=== PATIENT | female | born 1970 | race African-American/Black ===

== ENCOUNTER 2020-12-24 08:34 | Outpatient (CLI) | payer OTHER, SELFPAY ==
--- NOTE | 2020-12-24 10:30 | NEURO_ITS ---
Impression: # Insulin dependent diabetic complains numbness and pain in all extremities. 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 # Neurogenic changes noted on needle/EMG exam. # Clinical correlation recommended. Nerve Conduction Studies Anti Sensory Summary Table Stim Site NR Peak (ms) P-T Amp (?V) Site1 Site2 Delta-P (ms) Dist (cm) Nelson (m/s) Left Median Anti Sensory (2-3nd Digit) Wrist 3.2 41.5 Wrist 2-3nd Digit 3.2 14.0 44 Wrist 3.3 34.7 Wrist 2-3nd Digit 3.2 14.0 44 Right Median Anti Sensory (2-3nd Digit) Wrist 3.1 44.4 Wrist 2-3nd Digit 3.1 14.0 45 Wrist 3.3 24.4 Wrist 2-3nd Digit 3.1 14.0 45 Left Radial Anti Sensory (Base 1st Digit) Wrist 2.1 25.0 Wrist Base 1st Digit 2.1 0.0 Right Radial Anti Sensory (Base 1st Digit) Wrist 2.5 20.9 Wrist Base 1st Digit 2.5 0.0 Left Sup Fibular Anti Sensory (Ant Lat Mall) NO RESPONSE 14 cm NR 14 cm Ant Lat Mall 16.0 Right Sup Fibular Anti Sensory (Ant Lat Mall) DISPERSED RESPONSE 14 cm NR 14 cm Ant Lat Mall 16.0 Left Sural Anti Sensory (Lat Mall) Calf 3.5 3.2 Calf Lat Mall 3.5 16.0 46 Right Sural Anti Sensory (Lat Mall) Calf 4.5 5.3 Calf Lat Mall 4.5 16.0 36 Left Ulnar Anti Sensory (5th Digit) Wrist 2.7 50.2 Wrist 5th Digit 2.7 14.0 52 Right Ulnar Anti Sensory (5th Digit) Wrist 2.3 46.8 Wrist 5th Digit 2.3 14.0 61 Motor Summary Table Stim Site NR Onset (ms) O-P Amp (mV) Site1 Site2 Delta-0 (ms) Dist (cm) Nelson (m/s) Left Median Motor (Abd Poll Brev) Wrist 3.4 6.0 Elbow Wrist 4.8 27.0 56 Elbow 8.2 5.3 Right Median Motor (Abd Poll Brev) Wrist 3.7 3.7 Elbow Wrist 4.9 27.0 55 Elbow 8.6 0.9 Left Peroneal Motor (Vastus Med) Ankle 4.6 4.5 Popit Ankle 9.9 41.0 41 Popit 14.5 2.7 Right Peroneal Motor (Vastus Med) Ankle 4.1 4.7 Popit Ankle 9.7 34.0 35 Popit 13.8 1.3 Left Tibial Motor (Abd Day Brev) Ankle 4.9 3.7 Knee Ankle 9.9 43.0 43 Knee 14.8 2.0 Right Tibial Motor (Abd Day Brev) Ankle 4.7 2.1 Knee Ankle 11.0 42.0 38 Knee 15.7 2.3 Left Ulnar Motor (Abd Dig Minimi) Wrist 2.5 5.1 A Elbow Wrist 5.2 28.0 54 A Elbow 7.7 4.2 Right Ulnar Motor (Abd Dig Minimi) Wrist 2.9 2.6 A Elbow Wrist 5.5 30.0 55 A Elbow 8.4 1.6 F Wave Studies NR F-Lat (ms) L-R F-Lat (ms) Left Median (Mrkrs) (Abd Poll Brev) 31.71 0.64 Right Median (Mrkrs) (Abd Poll Brev) 31.06 0.64 Left Peroneal (Mrkrs) (EDB) 55.00 0.19 Right Peroneal (Mrkrs) (EDB) 54.81 0.19 Left Tibial (Mrkrs) (Abd Hallucis) 54.60 Right Tibial (Mrkrs) (Abd Hallucis) DISPERSED RESPONSE NR Left Ulnar (Mrkrs) (Abd Dig Min) 30.00 1.88 Right Ulnar (Mrkrs) (Abd Dig Min) 31.88 1.88 EMG Side Muscle Nerve Root Ins Act Fibs Amp Dur Recrt Comment Right 1stDorInt Ulnar C8-T1 Nml Nml Nml Nml Nml Right Ext Indicis Radial (Post Int) C7-8 Nml Nml Nml Nml Nml Right Ext Digitorum Radial (Post Int) C7-8 Nml Nml Nml Nml Nml Right BrachioRad Radial C5-6 Nml Nml Nml Nml Nml Right PronatorTeres Median C6-7 Nml Nml Nml Nml Nml Right Abd Poll Brev Median C8-T1 Nml Nml Nml Nml Nml
== END 2020-12-24 08:35 | disposition home or self-care (01) ==
PROVIDERS: PCP Physician Assistant; Visit Provider Physician Assistant
DX: M54.12 Radiculopathy, cervical region (principal); E11.40 Type 2 diabetes mellitus with diabetic neuropathy, unspecified
CPT/HCPCS: 95886; 95911

== ENCOUNTER 2021-04-22 00:31 | Day surgery (SDC) | payer OTHER, SELFPAY ==
[2021-04-14 15:41] VITALS: BMI 32.7
[2021-04-22 09:57] VITALS: BP 101/70; PULSE 102; RESP 18; TEMP 36.1; O2SAT 100; BMI 31.0
[2021-04-22 10:17] LABS: Glucose Point of Care 139 mg/dl (65-105)
--- NOTE | 2021-04-22 10:18 | WPDANESEPPF ---
Anes - Initial Pre Proc Eval Procedure: Operation Date: 04/22/21 11:00 Proposed Procedures p Esophagogastroduodenoscopy & Screening Colonoscopy - Titus Silver MD Date/Time: 04/22/21 10:18 Surgeon: Titus Silver MD Pre Op Diagnosis: dysphagia, Neoplasm screening Patient Data Age: 50 Gender: F Height: 1.68 m Weight: 87.3 kg Last Vital Signs Temp 36.1 C L 04/22/21 09:57 Pulse 102 H 04/22/21 09:57 Resp 18 04/22/21 09:57 BP 101/70 04/22/21 09:57 Pulse Ox 100 04/22/21 09:57 Allergies Allergy/AdvReac Type Severity Reaction Status Date / Time Penicillins Allergy Anaphylaxis Verified 04/22/21 09:56 Home Medications Medication Instructions Recorded Confirmed Type albuterol sulfate 2 puff INHALATION DAILY PRN 04/14/21 04/14/21 History amitriptyline 50 mg PO HS 04/14/21 04/14/21 History aspirin 81 mg PO DAILY 04/14/21 04/14/21 History atorvastatin 40 mg PO HS 04/14/21 04/14/21 History cyclobenzaprine 5 mg PO DAILY 04/14/21 04/14/21 History gabapentin 600 mg PO TID 04/14/21 04/14/21 History insulin glargine [Basaglar KwikPen 60 unit SUBCUT HS 04/14/21 04/14/21 History U-100 Insulin] meloxicam 7.5 mg PO BID 04/14/21 04/14/21 History metformin 500 mg PO BID 04/14/21 04/14/21 History propranolol 40 mg PO DAILY 04/14/21 04/14/21 History sertraline 50 mg PO DAILY 04/14/21 04/14/21 History sertraline 100 mg PO DAILY 04/14/21 04/14/21 History Laboratory Tests 04/22/21 10:09 POC Capillary Glucose 139 mg/dl H mg/dl (65-105) Patient hx anesthesia problems: none Family hx anesthesia problems: none PMFSH Past Medical History Medical History (Updated 04/22/21 @ 10:18 by Karlo Lovell MD) Diabetes Hyperlipidemia Obesity PREETI on CPAP Social History Social History Smoking status: Never smoker Living arrangements: with family Spiritual care concerns: No Anes - Eval Final PreProcedure Day of Procedure 04/22/21 10:18 Patient weight: obese Heart: regular rate and rhythm Lungs: clear to auscultation Airway: Mallampati scale class II Neurological: alert and oriented Last oral intake: >/= 8 hours ASA classification: III Emergent: no Anesthetic plan: proceed Anesthesia type and monitoring: general GIVS and standard monitoring Informed Consent: The patient's anesthetic plan and its attendant risks and benefits were discussed with the patient/family/POA. Questions were solicited and answers provided to the satisfaction of the patient/family/POA.
[2021-04-22] MEDS: LACTATED RINGERS 1,000 ML 150 ML IV CONT (10:21)
--- NOTE | 2021-04-22 10:26 | P.HP_ITS ---
History of Present Illness History of Present Illness Consent: Risks, benefits, and alternatives have been discussed and questions answered. Patient agrees to proceed with procedure. Chief complaint: dysphagia, Neoplasm screening Narrative: Joy Christensen is a 50 year old female With had dysphagia primarily for solid food beginning 2 months ago. Occasionally even liquids and semi- liquid material such as water or applesauce will seem to get hung up. She denies heartburn. She denies weight loss. She is also undergoing colon cancer screening Review of Systems Review of Systems: All systems reviewed & are unremarkable except as noted in HPI and below PMFSH Past Medical History Medical History Diabetes Hyperlipidemia Obesity PREETI on CPAP Social History Social History Smoking status: Never smoker Living arrangements: with family Spiritual care concerns: No Meds Home Medications and Allergies Home Medications Medication Instructions Recorded Confirmed Type albuterol sulfate 2 puff INHALATION DAILY PRN 04/14/21 04/14/21 History amitriptyline 50 mg PO HS 04/14/21 04/14/21 History aspirin 81 mg PO DAILY 04/14/21 04/14/21 History atorvastatin 40 mg PO HS 04/14/21 04/14/21 History cyclobenzaprine 5 mg PO DAILY 04/14/21 04/14/21 History gabapentin 600 mg PO TID 04/14/21 04/14/21 History insulin glargine [Basaglar KwikPen 60 unit SUBCUT HS 04/14/21 04/14/21 History U-100 Insulin] meloxicam 7.5 mg PO BID 04/14/21 04/14/21 History metformin 500 mg PO BID 04/14/21 04/14/21 History propranolol 40 mg PO DAILY 04/14/21 04/14/21 History sertraline 50 mg PO DAILY 04/14/21 04/14/21 History sertraline 100 mg PO DAILY 04/14/21 04/14/21 History propranolol 60 mg PO DAILY 04/22/21 04/22/21 History Allergies Allergy/AdvReac Type Severity Reaction Status Date / Time Penicillins Allergy Anaphylaxis Verified 04/22/21 09:56 Vital Signs Vital Signs - 24 hr 04/22/21 09:57 Temperature 36.1 C L Pulse Rate 102 H Respiratory Rate 18 Blood Pressure 101/70 Pulse Oximetry 100 Exam Const: General: alert Orientation/consciousness: patient oriented x3 Resp: Auscultation: clear to auscultation bilaterally Cardio: Rhythm: regular rhythm GI: GI Palp: Yes Soft to palpation and No Tenderness to palpation present (GI) Neuro: General: patient oriented x3 Assessment and Plan Assessment and plan (1) Dysphagia: Code(s): R13.10 - Dysphagia, unspecified Status: Acute Assessment and Plan: EGD with possible biopsy or dilatation or cautery. (2) Colon cancer screening: Code(s): Z12.11 - Encounter for screening for malignant neoplasm of colon Status: Acute Assessment and Plan: Colonoscopy with possible biopsy or polypectomy or cautery or injection of substances.
[2021-04-22 11:53] VITALS: BP 90/50; PULSE 80; RESP 18; O2SAT 100
[2021-04-22 12:03] VITALS: BP 96/60; PULSE 82; RESP 17; O2SAT 100
[2021-04-22 12:13] VITALS: BP 104/67; PULSE 81; RESP 16; O2SAT 100
[2021-04-22 12:13] LABS: Glucose Point of Care 116 mg/dl (65-105)
--- NOTE | 2021-04-22 12:45 | SUR.PHASEII ---
Dr. Silver notified of the Positive H-pylori.
== END 2021-04-22 12:41 | disposition home or self-care (01) ==
PROVIDERS: PCP Physician Assistant; Visit Provider Internal Medicine Gastroenterology
PROC: 0DJ08ZZ Inspection of Upper Intestinal Tract, Via Natural or Artificial Opening Endoscopic (ICD-10-PCS; CPT 43235; principal; 2021-04-22 11:00)
DX: Z12.11 Encounter for screening for malignant neoplasm of colon (principal); K21.00 Gastro-esophageal reflux disease with esophagitis, without bleeding; B96.81 Helicobacter pylori [H. pylori] as the cause of diseases classified elsewhere; R13.10 Dysphagia, unspecified; E11.9 Type 2 diabetes mellitus without complications; E78.5 Hyperlipidemia, unspecified; G47.33 Obstructive sleep apnea (adult) (pediatric); E66.9 Obesity, unspecified; Z68.31 Body mass index [BMI] 31.0-31.9, adult; Z79.51 Long term (current) use of inhaled steroids; Z79.4 Long term (current) use of insulin; Z79.82 Long term (current) use of aspirin
CPT/HCPCS: 45378; 43239; 82948; 87081; 88305; 88342; J2704; J7120